=== PATIENT | female | born 1975 | race Asian ===

== ENCOUNTER 2023-03-29 11:01 | Emergency (ER) | payer OTHER, SELFPAY ==
[2023-03-29 11:06] VITALS: BP 121/62
--- NOTE | 2023-03-29 11:30 | ED.GENMED ---
History of Present Illness
General
Chief Complaint: Headache
Time Seen by Provider: 03/29/23 11:24
Travel History
Have you had any contact with someone who has COVID-19?: No
Do you have any symptoms of coronavirus? Fever > 100 degrees, chills, cough, shortness of breath, sore throat, loss of taste or smell, muscle aches, or headache?: Yes
Symptoms:: cough headache
History of Present Illness
History of Present Illness:
47-year-old female with history of migraines presents the emergency department for evaluation of intractable migraine for the past 2 weeks. Headache is gradually worsening, associated with photophobia and nausea. Has had migraines in the past but
states this is worse. Denies maximal pain at onset, denies any fevers or chills. Was seen in urgent care 2 days ago and given antibiotics for presumed upper respiratory tract infection states that her symptoms or not improving. Took rizatriptan
this morning without relief. Denies worsening the morning, denies any night sweats or weight loss. No vision changes or chest pain
Review of Systems
Review of Systems
Allergies reviewed?: Yes
All Other Systems: ROS reviewed and negative except as documented in HPI and ROS
Phy Exam
Physical Exam
Physical Exam:
GEN: Well appearing, NAD, WDWN
HEENT: Oral mucosa moist, no scleral icterus, no nasal congestion
Cardiac: Regular rate
Lung: No respiratory distress, no tachypnea
MSK: No gross deformity or injuries
Skin: Good color, no pallor or jaundice, no rashes
Neuro: AO x3; CN II-XII grossly intact. BUE strength 5/5 in all [place], sensation intact and symmetric. BLE strength 5/5 in all [place], sensation intact and symmetric
Psych: Calm, cooperative
Course
Orders/Labs/Results
Orders:
Orders
03/29/23 11:29
0.9% Sodium Chloride 1000 ml [Nss] 1,000 ml IV BOLUS
Acetaminophen [Tylenol] 1,000 mg PO NOW STA
Ketorolac [Toradol] 15 mg IV NOW STA
Magnesium Sulfate 2 Gram/50 ml [Magnesium Sulfate] 2 gram in 50 ml IV NOW
Metoclopramide [Reglan] 10 mg IV NOW STA
03/29/23 11:30
CT Head W/o Iv Contrast Urgent
Comment:
Reason For Exam: intractable headache
Test Result ONCE
03/29/23 12:07
Basic Metabolic Panel Urgent
Complete Blood Count/No Diff Urgent
HCG, Serum Qualitative Screen Urgent
Abnormal Lab Results
03/29/23
12:07
WBC 3.0 L 10^3/uL
(4.8-10.8)
RBC 4.12 L 10^6/uL
(4.20-5.40)
Hct 35.1 L %
(37.0-47.0)
Sodium 132 L mmol/L
(135-145)
Carbon Dioxide 21 L mmol/L
(22-30)
Creatinine 0.5 L mg/dL
(0.6-1.0)
Glucose 144 H mg/dl
(70-99)
03/29/23 12:07
03/29/23 12:07
Vital Signs
Initial and Last Documented VS:
Initial Vital Signs
Temp Pulse Resp BP Pulse Ox
98.2 F 80 18 121/62 99
03/29/23 11:06 03/29/23 11:06 03/29/23 11:06 03/29/23 11:06 03/29/23 11:06
Last Documented Vital Signs
Temp Pulse Resp BP Pulse Ox
98.2 F 80 18 103/73 98
03/29/23 11:06 03/29/23 11:06 03/29/23 11:06 03/29/23 12:18 03/29/23 12:45
MDM/Problems Addressed
MDM/Problems Addressed:
Patient has no focal neurologic deficits concerning for intracranial pathology, her headache duration of greater than 2 weeks is suggestive against hemorrhagic etiology such as subarachnoid hemorrhage. Patient is quite insistent on receiving a CT
of the head due to the intractable nature of her symptoms which is not unreasonable, CT was obtained and this was unremarkable. Patient was treated supportively for migraine with typical migraine cocktail, this did essentially resolved symptoms.
This is likely an intractable migraine given the patient does have a history of this. Encourage close primary care follow-up
*Critical Care Note
Total Time (30-74mins, 75-104mins- exclusive of procedures): Not Applicable
ED Attending Note
-
Portions of this chart may have been created with voice recognition software.� Occasional wrong word or��sound alike� substitutions may have occurred due to the inherent limitations of voice recognition software.
Discharge Plan
Departure
Patient Disposition: Home (Routine Discharge)
Date of Disposition: 03/29/23
Time of Disposition: 12:43
Patient with high blood pressure during this ER visit?: No
Discharge Problem:
Intractable migraine
Instructions: Migraines (DC)
Interventions
Interventions:
*Risk Screen - Suicide Last Done: 03/29/23 11:06
*General Assessment Last Done: 03/29/23 11:06
*Neglect/Abuse Screening Last Done: 03/29/23 11:06
*ED COVID-19 Vaccine History Last Done: 03/29/23 11:06
ED- Neurological Assessment Last Done: 03/29/23 12:15
[2023-03-29] MEDS: TORADOL 15 MG IV (11:54)
[2023-03-29] MEDS: NSS 1000 IV (11:56)
[2023-03-29] MEDS: REGLAN 10 MG IV (11:56)
[2023-03-29] MEDS: TYLENOL 1000 MG PO (11:57)
[2023-03-29] MEDS: MAGNESIUM SULFATE 50 IV (12:10)
[2023-03-29 12:18] VITALS: BP 103/73
[2023-03-29 12:22] LABS: Hematocrit 35.1 % (37.0-47.0); Hemoglobin 12.5 g/dL (12.0-16.0); Mean Corp Hgb Conc. 35.6 g/dL (33.0-37.0); Mean Corpuscular Hgb 30.3 pg (27.0-31.0); Mean Corpuscular Volume 85.2 fL (81.0-99.0); Mean Platelet Volume 10.3 fL (7.4-10.4); Platelet Count 154 10^3/uL (130-400); Red Blood Cell Count 4.12 10^6/uL (4.20-5.40); Red Cell Dist. Width 12.2 % (11.5-14.5)
[2023-03-29 12:34] LABS: HCG, Serum Qualitative Screen Negative
[2023-03-29 12:35] LABS: Blood Urea Nitrogen 9 mg/dl (7-17); Calcium 8.5 mg/dl (8.4-10.2); Carbon Dioxide 21 mmol/L (22-30); Chloride 105 mmol/L (98-107); Glucose 144 mg/dl (70-99); Potassium 3.5 mmol/L (3.5-5.1); Sodium 132 mmol/L (135-145); eGFR > 60.00
== END 2023-03-29 12:50 | disposition home or self-care (01) ==
LOC: EMR 11:01
PROVIDERS: Physician Assistant; EMERGENCY PHYSICIAN Emergency Medicine
DX: G43.919 Migraine, unspecified, intractable, without status migrainosus (principal)
CPT/HCPCS: 99284; 96365; 96375 ×2; 96361; 70450; 80048; 84703; 85027

== ENCOUNTER 2023-04-04 11:54 | Emergency (ER) | payer OTHER, SELFPAY ==
[2023-04-04 11:58] VITALS: BP 120/75
[2023-04-04 12:20] LABS: % Basophils 0.2 % (0-2); % Eosinophils 0.3 % (0-6); % Immature Granulocytes 0.3 % (0-0.5); % Lymphocytes 15.4 % (20.5-51.1); % Monocytes 3.6 % (1.7-9.3); % Neutrophils 80.2 % (42.2-75.2); Absolute Lymphocytes 1.5 10^3/uL (1.2-3.4); Absolute Monocytes 0.4 10^3/uL (0.1-0.6); Absolute Neutrophils 7.9 10^3/uL (1.4-6.5); Hematocrit 35.5 % (37.0-47.0); Hemoglobin 12.8 g/dL (12.0-16.0); Mean Corp Hgb Conc. 36.1 g/dL (33.0-37.0); Mean Corpuscular Volume 83.3 fL (81.0-99.0); Mean Platelet Volume 10.6 fL (7.4-10.4); Nucleated Red Blood Cells % 0 %; Platelet Count 144 10^3/uL (130-400); Red Blood Cell Count 4.26 10^6/uL (4.20-5.40); Red Cell Dist. Width 11.9 % (11.5-14.5); White Blood Cell Count 9.8 10^3/uL (4.8-10.8)
[2023-04-04 12:45] VITALS: BMI 23.3
[2023-04-04 12:46] LABS: ALT (SGPT) 14 U/L (0-35); AST (SGOT) 21 U/L (14-36); Albumin 4.1 g/dl (3.5-5.0); Blood Urea Nitrogen 9 mg/dl (7-17); Calcium 9.3 mg/dl (8.4-10.2); Carbon Dioxide 20 mmol/L (22-30); Chloride 102 mmol/L (98-107); Glucose 88 mg/dl (70-99); Potassium 3.7 mmol/L (3.5-5.1); Sodium 135 mmol/L (135-145); Total Protein 6.8 g/dl (6.3-8.2); eGFR > 60.00
[2023-04-04 12:47] VITALS: BP 111/78
[2023-04-04 12:48] LABS: COVID-19 Antigen Negative (Negative)
[2023-04-04 12:56] LABS: Alkaline Phosphatase 62 U/L (38-126)
[2023-04-04 13:00] VITALS: BP 105/68
[2023-04-04 13:07] LABS: Total Bilirubin 0.8 mg/dl (0.2-1.3)
--- NOTE | 2023-04-04 13:15 | ED.GENMED ---
History of Present Illness
<Mariaa Mcintosh PA-C - Last Filed: 04/04/23 14:25>
General
Chief Complaint: Cold/Flu/URI Symptoms
Source: patient
Exam Limitations: none
Time Seen by Provider: 04/04/23 13:14
Nursing documentation reviewed up to this point in time: agreed with
Travel History
Have you had any contact with someone who has COVID-19?: No
Do you have any symptoms of coronavirus? Fever > 100 degrees, chills, cough, shortness of breath, sore throat, loss of taste or smell, muscle aches, or headache?: Yes
Symptoms:: cough
History of Present Illness
History of Present Illness:
47-year-old healthy female with no past medical history presenting to emergency department today with right-sided chest pain, shortness of breath, and cough for the past 3 weeks. Patient states that she has also been coughing up yellow and green
sputum. She denies fevers or chills, headaches. She also has associated back pain. She denies any past medical history. She denies any daily medications. She denies hemoptysis. She states that she has been using Mucinex to help try the clear
from her mucus but states that has not been helping. She states that she does not vaccinated against COVID.
Review of Systems
<Mariaa Mcintosh PA-C - Last Filed: 04/04/23 14:25>
Review of Systems
All Other Systems: ROS reviewed and negative except as documented in HPI and ROS
Phy Exam
<Mariaa Mcintosh PA-C - Last Filed: 04/04/23 14:25>
General Physical Exam
General Presentation: well appearing and no apparent distress
General Skin: warm and dry
General Habitus: normal
General Mental: alert
General Hydration: appears well hydrated
ENT Exam
ENT Exam: EOMI, pharynx normal and normocephalic
Eye Exam
Eye Exam: PERRL, EOMI, cornea clear and conjunctiva normal
Cardiovascular Exam
Cardiovascular Exam: regular rate/rhythm
Pulmonary Exam
Pulmonary Exam: no respiratory distress, chest non tender and other (rhonchi)
Cough: productive cough
Gastrointestinal Exam
Gastrointestinal Exam: non tender
Neurological Exam
Neurological Exam: alert and oriented x3
Skin Exam
Skin Exam: normal color, warm/dry and no rash
Course
<Mariaa Mcintosh PA-C - Last Filed: 04/04/23 14:25>
Orders/Labs/Results
Orders:
Orders
04/04/23 12:10
CBC/With Diff [Complete Blood Count/With Diff] Urgent
CMP [Comprehensive Metabolic Panel] Urgent
COVID-19 Antigen Urgent
Source: Nasal Swab
INF RAPID [Influenza A+B Rapid Molecular] Urgent
ANTHONY Source: Nasal Swab
Specimen Description:
04/04/23 13:25
Ibuprofen [Motrin] 600 mg PO NOW STA
CR Chest - 2 Views Urgent
Comment:
Reason For Exam: shortness of breath
Abnormal Lab Results
04/04/23
12:10
Hct 35.5 L %
(37.0-47.0)
MPV 10.6 H fL
(7.4-10.4)
Absolute Neuts (auto) 7.9 H 10^3/uL
(1.4-6.5)
Neutrophils % 80.2 H %
(42.2-75.2)
Lymphocytes % 15.4 L %
(20.5-51.1)
Carbon Dioxide 20 L mmol/L
(22-30)
Creatinine 0.5 L mg/dL
(0.6-1.0)
04/04/23 12:10
04/04/23 12:10
Vital Signs
Initial and Last Documented VS:
Initial Vital Signs
Temp Pulse Resp BP Pulse Ox
97.9 F 70 16 120/75 98
04/04/23 11:58 04/04/23 11:58 04/04/23 11:58 04/04/23 11:58 04/04/23 11:58
Last Documented Vital Signs
Temp Pulse Resp BP Pulse Ox
97.9 F 67 22 105/68 96
04/04/23 11:58 04/04/23 13:15 04/04/23 13:15 04/04/23 13:00 04/04/23 13:15
<Kings Thurman, DO - Last Filed: 04/04/23 14:40>
Orders/Labs/Results
Orders:
Orders
04/04/23 12:10
CBC/With Diff [Complete Blood Count/With Diff] Urgent
CMP [Comprehensive Metabolic Panel] Urgent
COVID-19 Antigen Urgent
Source: Nasal Swab
INF RAPID [Influenza A+B Rapid Molecular] Urgent
ANTHONY Source: Nasal Swab
Specimen Description:
04/04/23 13:25
Ibuprofen [Motrin] 600 mg PO NOW STA
CR Chest - 2 Views Urgent
Comment:
Reason For Exam: shortness of breath
Abnormal Lab Results
04/04/23
12:10
Hct 35.5 L %
(37.0-47.0)
MPV 10.6 H fL
(7.4-10.4)
Absolute Neuts (auto) 7.9 H 10^3/uL
(1.4-6.5)
Neutrophils % 80.2 H %
(42.2-75.2)
Lymphocytes % 15.4 L %
(20.5-51.1)
Carbon Dioxide 20 L mmol/L
(22-30)
Creatinine 0.5 L mg/dL
(0.6-1.0)
04/04/23 12:10
04/04/23 12:10
Vital Signs
Initial and Last Documented VS:
Initial Vital Signs
Temp Pulse Resp BP Pulse Ox
97.9 F 70 16 120/75 98
04/04/23 11:58 04/04/23 11:58 04/04/23 11:58 04/04/23 11:58 04/04/23 11:58
Last Documented Vital Signs
Temp Pulse Resp BP Pulse Ox
97.9 F 67 22 105/68 96
04/04/23 11:58 04/04/23 13:15 04/04/23 13:15 04/04/23 13:00 04/04/23 13:15
<Mariaa Mcintosh PA-C - Last Filed: 04/04/23 14:25>
MDM/Problems Addressed
Differential Diagnosis Includes:
Differentials include acute bronchitis, pneumonia, URI, COVID, influenza
MDM/Problems Addressed:
cough
shortness of breath
Chronic conditions affecting care:
migraines
<Mariaa Mcintosh PA-C - Last Filed: 04/04/23 14:25>
*Radiology
Radiology exam reviewed: preliminary read by ED provider (no evidence of pneumonia) and radiology read reviewed
*Pulse Oximetry
Patient hypoxic: no
*Critical Care Note
Total Time (30-74mins, 75-104mins- exclusive of procedures): Not Applicable
Data Reviewed
Review of Other/Old Records Reveals: Records (Reviewed ER physician documentation from 03/29/2023)
<Mariaa Mcintosh PA-C - Last Filed: 04/04/23 14:25>
Patient Management
Escalation/DeEscalation of care consider admission/obs:
47-year-old female with no past medical history presenting emergency department today with shortness of breath, chest pain, cough for the past 3 weeks. Patient's and children also have these symptoms. On exam, she has scattered rhonchi but
no acute respiratory distress. She tested negative for COVID and flu here in emergency department. Her x-ray shows no evidence of pneumonia or other acute cardiopulmonary disease. Patient main most concerning symptom is her persistent cough with
the shortness of breath. I suspect patient has acute bronchitis. Will send patient home with with an albuterol inhaler to use as needed.
ED Attending Note
<Mariaa Mcintosh PA-C - Last Filed: 04/04/23 14:25>
-
Portions of this chart may have been created with voice recognition software.� Occasional wrong word or��sound alike� substitutions may have occurred due to the inherent limitations of voice recognition software.
<Kings Thurman DO - Last Filed: 04/04/23 14:40>
ED Attending Note
Patient seen and examined by attending physician: Yes
I performed a history and physical exam of patient and discussed management with resident, I reviewed resident's note and agree with documented findings and plan of care.: Yes
ED Attending Note:
I have reviewed with history and treatment plan by Mariaa Mcintosh. My exam revealed
Physical Exam
General: no apparent distress, not acutely ill
Neck: supple. no meningeal signs. normal posterior pharynx
Heart: s1/s2 regular rate and rhythm, no murmur. equal radial
pulses.
HEENT: Pupils equal round reactive to light, EOMI
Lungs: no acute respiratory distress. clear bilaterally, cough
Abdomen: normal bowel sounds. not tender. no CVAT
Neuro: alert and oriented. no focal neurological deficits cranial nerves II through XII intact
Skin: no rash
Psychiatric: well kept. interactive and cooperative
Extremities: no edema. no calf tenderness. negative homans. good distal pulses
Consistent with bronchitis. No signs of pneumonia. Treat with albuterol. Follow-up with primary care.
Discharge Plan
Departure
Patient Disposition: Home (Routine Discharge)
Date of Disposition: 04/04/23
Time of Disposition: 14:01
Patient with high blood pressure during this ER visit?: No
Condition: Good
Discharge Problem:
Acute bronchitis
Instructions: Acute Bronchitis, Adult (DC), How to use your dry powder inhaler (adults)
Prescriptions:
New
albuterol sulfate [ProAir HFA] 90 mcg/actuation HFA aerosol inhaler
1 puff inhalation Q4HPRN PRN (Reason: shortness of breath) Qty: 6.7 0RF
Referrals:
Alex Webb MD [Family Provider] -
Activity Restrictions/Additional Instructions:
We have sent an albuterol inhaler to your pharmacy. Please use 1 puff every 4 hours as needed for cough/shortness of breath.
Please return emergency department any concerns.
Please follow-up with your primary care provider.
Interventions
Interventions:
*Risk Screen - Suicide Last Done: 04/04/23 11:58
*General Assessment Last Done: 04/04/23 11:58
*Neglect/Abuse Screening Last Done: 04/04/23 11:58
ED- Fall Risk Assessment Last Done: 04/04/23 12:45
*ED COVID-19 Vaccine History Last Done: 04/04/23 12:45
*Nursing Disposition Last Done: 04/04/23 14:13
ED- Pulmonary Assessment Last Done: 04/04/23 12:45
Discharge Date and Time
Discharge Date/Time: 04/04/23 14:14
[2023-04-04] MEDS: MOTRIN 600 MG PO (13:33)
== END 2023-04-04 14:14 | disposition home or self-care (01) ==
LOC: EMR 11:54
PROVIDERS: EMERGENCY PHYSICIAN Emergency Medicine; FAMILY PHYSICIAN Internal Medicine
DX: J20.9 Acute bronchitis, unspecified (principal); M54.9 Dorsalgia, unspecified; Z11.52 Encounter for screening for COVID-19
CPT/HCPCS: 99283; 71046; 80053; 85025; 87502; 87811

== ENCOUNTER 2024-01-04 10:27 | Emergency (ER) | payer OTHER, SELFPAY ==
[2024-01-04 10:34] VITALS: BP 130/75
[2024-01-04 11:04] LABS: COVID-19 Antigen Negative (Negative)
--- NOTE | 2024-01-04 11:50 | ED.GENMED ---
History of Present Illness
General
Chief Complaint: Cough
Source: patient
Exam Limitations: none
Time Seen by Provider: 01/04/24 11:35
History of Present Illness
History of Present Illness:
48-year-old female presents with 2 weeks worth of fatigue cough occasional headache. Her children are sick with similar symptoms. She has not had a fever. She notes a productive cough. She denies a wheeze or shortness breath.
Phy Exam
Physical Exam
Physical Exam:
General: Well appearing female NAD
HEENT: NC/AT, no adenopathy
Heart; RRR, no murmurs
LUngs: CTA bilaterally
Ext: NO cyanosis
Course
Orders/Labs/Results
Orders:
Orders
01/04/24 10:41
COVID-19 Antigen Urgent
Source: Nasal Swab
Influenza A+B Rapid Molecular Urgent
ANTHONY Source: Nasal Swab
Specimen Description:
01/04/24 11:49
CR Chest - 2 Views Urgent
Comment:
Reason For Exam: cough
Vital Signs
Initial and Last Documented VS:
Initial Vital Signs
Temp Pulse Resp BP Pulse Ox
97.9 F 66 16 130/75 98
01/04/24 10:34 01/04/24 10:34 01/04/24 10:34 01/04/24 10:34 01/04/24 10:34
Last Documented Vital Signs
Temp Pulse Resp BP Pulse Ox
97.9 F 66 16 130/75 98
01/04/24 10:34 01/04/24 10:34 01/04/24 10:34 01/04/24 10:34 01/04/24 10:34
MDM/Problems Addressed
Differential Diagnosis Includes:
Patient with cough fatigue over the past 10 days. Lungs are clear vital signs are stable she tested negative for COVID and flu. Children are sick with similar symptoms. Will get x-ray to evaluate for pneumonia secondary to the persistent cough.
If negative consider viral illness and supportive
*Critical Care Note
Total Time (30-74mins, 75-104mins- exclusive of procedures): Not Applicable
Update Note
Update Note:
Chest x-ray personally reviewed by me and there is no evidence of pneumonia. Suspect viral illness. Recommended supportive care stable for discharge
ED Attending Note
-
Portions of this chart may have been created with voice recognition software.� Occasional wrong word or��sound alike� substitutions may have occurred due to the inherent limitations of voice recognition software.
Discharge Plan
Departure
Patient Disposition: Home (Routine Discharge)
Date of Disposition: 01/04/24
Time of Disposition: 13:52
Patient with high blood pressure during this ER visit?: No
Discharge Problem:
URI (upper respiratory infection)
Instructions: Viral Upper Respiratory Infection, Adult (DC)
Prescriptions:
No Action
albuterol sulfate [ProAir HFA] 90 mcg/actuation HFA aerosol inhaler
1 puff inhalation Q4HPRN PRN (Reason: shortness of breath) Qty: 6.7 0RF
Referrals:
UNKNOWN - PT DOES,NOT KNOW [Family Provider] -
Activity Restrictions/Additional Instructions:
Drink plenty fluids. Rest. You may treat your fever if needed. Return if worse otherwise follow-up with family doctor
Interventions
Interventions:
*Risk Screen - Suicide Last Done: 01/04/24 12:48
*General Assessment Last Done: 01/04/24 12:48
*Neglect/Abuse Screening Last Done: 01/04/24 12:48
*ED COVID-19 Vaccine History Last Done: 01/04/24 12:48
ED- Pulmonary Assessment Last Done: 01/04/24 12:48
Discharge Date and Time
Print Language: MALAY
== END 2024-01-04 14:23 | disposition home or self-care (01) ==
LOC: EMR 10:27
PROVIDERS: Emergency Medicine; EMERGENCY PHYSICIAN Student in an Organized Health Care Education/Training Program
DX: J06.9 Acute upper respiratory infection, unspecified (principal)
CPT/HCPCS: 99284; 71046; 87502; 87811

== ENCOUNTER → 2024-01-23 11:08 | Emergency (ER) | payer OTHER, SELFPAY ==
[2024-01-23 11:14] VITALS: BP 133/67
[2024-01-23 12:33] LABS: COVID-19 Antigen Negative (Negative)
[2024-01-23 13:38] VITALS: BP 120/74
[2024-01-23 13:41] VITALS: BMI 23.4
[2024-01-23 13:44] VITALS: BP 120/74
--- NOTE | 2024-01-23 14:14 | ED.GENMED ---
History of Present Illness
General
Chief Complaint: Cold/Flu/URI Symptoms
Time Seen by Provider: 01/23/24 14:05
History of Present Illness
History of Present Illness:
Patient presents the emergency department with cough. Symptoms started about 1 month ago when her children were sick with a URI that got better on its own. She states that she developed some upper respiratory symptoms such as congestion sore
throat and cough. The cough has persisted over the past month. She states it is worse at night. She has yellow sputum. Denies any chest pain or shortness of breath. Denies any leg swelling. Denies any fevers. Patient is a non-smoker. Denies
any medical history.
Phy Exam
Physical Exam
Physical Exam:
GENERAL APPEARANCE: NAD, well developed/ well nourished
EYES lids/conjunctiva normal
EARS/NOSE/THROAT Mucous membranes moist, uvula midline, mild pharyngeal erythema without any swelling
HEAD/NECK normocephalic atraumatic, neck is supple.
RESPIRATORY respiratory effort normal, speaks in full sentences, no accessory muscle use. Lungs clear to auscultation without rhonchi, wheezes, rales
CARDIAC Regular rate and rhythm, no edema.
ABDOMINAL Soft, ND/NT. No pulsatile masses on exam, rebound tenderness, Love sign or pain over Mcburney's point.
MUSCLES/EXTREMITIES No abnormal range of motion, no swelling.
SKIN Warm, pink and dry. No rashes
NEUROLOGICAL Speech is clear and appropriate. Normal level of consciousness. 5/5 strength in all extremities.
PSYCH Normal mood and affect. Judgement/competence is appropriate
Course
Orders/Labs/Results
Orders:
Orders
01/23/24 12:08
COVID-19 Antigen Urgent
Source: Nasal Swab
Influenza A+B Rapid Molecular Urgent
ANTHONY Source: Nasal Swab
Specimen Description:
01/23/24 12:44
CXR2 [CR Chest - 2 Views ] Urgent
Comment:
Reason For Exam: COUGH FOR ONE MONTH
01/23/24 14:13
Naproxen [Naprosyn] 500 mg PO NOW STA
Vital Signs
Initial and Last Documented VS:
Initial Vital Signs
Temp Pulse Resp BP Pulse Ox
98.1 F 68 18 133/67 99
01/23/24 11:14 01/23/24 11:14 01/23/24 11:14 01/23/24 11:14 01/23/24 11:14
Last Documented Vital Signs
Temp Pulse Resp BP Pulse Ox
98.1 F 68 16 120/74 100
01/23/24 11:14 01/23/24 11:14 01/23/24 13:44 01/23/24 13:44 01/23/24 13:45
*Critical Care Note
Total Time (30-74mins, 75-104mins- exclusive of procedures): Not Applicable
ED Attending Note
ED Attending Note
ED Attending Note:
Patient with foot postviral cough that is persistent and with change in sputum. Will treat for bronchitis. Chest x-ray negative for pneumonia. Viral swabs negative.
-
Portions of this chart may have been created with voice recognition software.� Occasional wrong word or��sound alike� substitutions may have occurred due to the inherent limitations of voice recognition software.
Discharge Plan
Departure
Patient Disposition: Home (Routine Discharge)
Date of Disposition: 01/23/24
Time of Disposition: 14:15
Patient with high blood pressure during this ER visit?: No
Discharge Problem:
Acute bronchitis
Instructions: Acute Bronchitis, Adult (DC)
Prescriptions:
New
methylprednisolone [Medrol ([place])] 4 mg tablets,dose pack
See Rx Instructions .ROUTE .COMPLEX Qty: 21 0RF
Rx Instructions:
orally per package directions
doxycycline hyclate 100 mg capsule
100 mg PO BID Qty: 14 0RF
No Action
albuterol sulfate [ProAir HFA] 90 mcg/actuation HFA aerosol inhaler
1 puff inhalation Q4HPRN PRN (Reason: shortness of breath) Qty: 6.7 0RF
Activity Restrictions/Additional Instructions:
Please follow-up with your doctor in the next week to ensure resolution. Return to the ER with worsening symptoms
Interventions
Interventions:
*General Assessment Last Done: 01/23/24 11:14
*ED COVID-19 Vaccine History Last Done: 01/23/24 13:42
ED- Pulmonary Assessment Last Done: 01/23/24 13:45
Discharge Date and Time
Print Language: GERMAN
[2024-01-23] MEDS: NAPROSYN 500 MG PO (14:26)
== END | disposition home or self-care (01) ==
LOC: EMR 11:08
PROVIDERS: Emergency Medicine; EMERGENCY PHYSICIAN Emergency Medicine; FAMILY PHYSICIAN Internal Medicine Nephrology
DX: J20.9 Acute bronchitis, unspecified (principal)
CPT/HCPCS: 99283; 71046; 87502; 87811

== ENCOUNTER 2024-12-05 14:12 | Emergency (ER) | payer OTHER, SELFPAY ==
[2024-12-05 14:13] VITALS: BP 117/75
--- NOTE | 2024-12-05 14:58 | ED.GENMED ---
ED Provider Triage
<Jayce House MD, Resident - Last Filed: 12/05/24 16:42>
-
Patient seen by provider in Triage?: Seen in Triage
History of Present Illness
<Jayce House MD, Resident - Last Filed: 12/05/24 16:42>
General
Chief Complaint: Headache
Source: patient
Exam Limitations: none
Time Seen by Provider: 12/05/24 14:35
History of Present Illness
History of Present Illness:
49-year-old female with no significant past medical history presents for sore throat/itchy throat/rhinorrhea that started 1 week ago associated with a productive cough which has been constant and then new symptom of left-sided moderate intensity
headache today morning. no neck pain, no visual changes, no chills, no ear pain/fullness/discharge, no abdominal pain, nausea, vomiting, diarrhea, acute mental status changes. Patient has never been vaccinated for COVID and did not get the flu
vaccination this year. She has she has had previous clinical similar presentations and has been seen for acute bronchitis,viral URI, and intractable migraines in [place] emergency department.
Past History
<Jayce House MD, Resident - Last Filed: 12/05/24 16:42>
Past History
ED Past Medical History: Other (Bronchitis, URI, intractable migraine)
ED Past Surgical History: None
Social History
Tobacco: Non-smoker
Alcohol: None
Drug: None
Review of Systems
<Jayce House MD, Resident - Last Filed: 12/05/24 16:42>
Review of Systems
All Other Systems: ROS reviewed and negative except as documented in HPI and ROS
Phy Exam
<Jayce House MD, Resident - Last Filed: 12/05/24 16:42>
General Physical Exam
General Presentation: well appearing
General Skin: warm
General Habitus: normal
General Mental: alert
ENT Exam
ENT Exam: EOMI, TM's normal, pharyngeal erythema and swallowing well
Eye Exam
Eye Exam: PERRL and EOMI
Cardiovascular Exam
Cardiovascular Exam: regular rate/rhythm and no edema
Pulmonary Exam
Pulmonary Exam: other (Bilateral wheeze of the lower lobes of the lung)
Gastrointestinal Exam
Gastrointestinal Exam: normal bowel sounds, non tender, soft and non distended
Neurological Exam
Neurological Exam: alert and oriented x3
Musculoskeletal Exam
Musculoskeletal Exam: full ROM
Skin Exam
Skin Exam: normal color, warm/dry and no rash
Psychiatric Exam
Psychiatric Exam: normal mood/affect
Course
<Jayce House MD, Resident - Last Filed: 12/05/24 16:42>
Orders/Labs/Results
Orders:
Orders
12/05/24 14:49
Acetaminophen [Tylenol] 650 mg PO NOW STA
12/05/24 15:03
Albuterol [ProAIR HFA INHALER] 2 puff INH R NOW STA
Chest [CR Chest - 2 Views ] Urgent
Comment:
Reason For Exam: sob
12/05/24 15:06
Ibuprofen [Motrin] 600 mg PO NOW STA
12/05/24 15:36
COVID-19 Antigen Urgent
Source: Nasal Swab
Influenza A+B Rapid Molecular Urgent
ANTHONY Source: Nasal Swab
Specimen Description:
Rapid Strep Group A Urgent
ANTHONY Source: Throat/Pharynx
Specimen Description:
Date Specimen was Collected: 12/05/24
Time Specimen was Collected: 15:06
12/05/24 16:44
Albuterol [ProAIR HFA INHALER] 2 puff INH R NOW STA
Vital Signs
Initial and Last Documented VS:
Initial Vital Signs
Temp Pulse Resp BP Pulse Ox
97.9 F 63 17 117/75 99
12/05/24 14:13 12/05/24 14:13 12/05/24 14:13 12/05/24 14:13 12/05/24 14:13
Last Documented Vital Signs
Temp Pulse Resp BP Pulse Ox
97.9 F 63 17 117/75 99
12/05/24 14:13 12/05/24 14:13 12/05/24 14:13 12/05/24 14:13 12/05/24 15:02
<Jann Thapa MD - Last Filed: 12/05/24 16:49>
Orders/Labs/Results
Orders:
Orders
12/05/24 14:49
Acetaminophen [Tylenol] 650 mg PO NOW STA
12/05/24 15:03
Albuterol [ProAIR HFA INHALER] 2 puff INH R NOW STA
Chest [CR Chest - 2 Views ] Urgent
Comment:
Reason For Exam: sob
12/05/24 15:06
Ibuprofen [Motrin] 600 mg PO NOW STA
12/05/24 15:36
COVID-19 Antigen Urgent
Source: Nasal Swab
Influenza A+B Rapid Molecular Urgent
ANTHONY Source: Nasal Swab
Specimen Description:
Rapid Strep Group A Urgent
ANTHONY Source: Throat/Pharynx
Specimen Description:
Date Specimen was Collected: 12/05/24
Time Specimen was Collected: 15:06
12/05/24 16:44
Albuterol [ProAIR HFA INHALER] 2 puff INH R NOW STA
Vital Signs
Initial and Last Documented VS:
Initial Vital Signs
Temp Pulse Resp BP Pulse Ox
97.9 F 63 17 117/75 99
12/05/24 14:13 12/05/24 14:13 12/05/24 14:13 12/05/24 14:13 12/05/24 14:13
Last Documented Vital Signs
Temp Pulse Resp BP Pulse Ox
97.9 F 63 17 117/75 99
12/05/24 14:13 12/05/24 14:13 12/05/24 14:13 12/05/24 14:13 12/05/24 15:02
<Jayce House MD, Resident - Last Filed: 12/05/24 16:42>
MDM/Problems Addressed
Differential Diagnosis Includes:
Viral URI, viral pharyngitis, acute bronchitis, COVID-19, influenza, strep pharyngitis
MDM/Problems Addressed:
- influenza, COVID, strep throat- all negative
- Chest x-ray- no acute cardiopulmonary process
- Motrin/ tylenol ordered for headache
Most likely viral illness, will discharge patient home with instructions to f/u pcp in 5 days.
<Jayce House MD, Resident - Last Filed: 12/05/24 16:42>
*Pulse Oximetry
SaO2: 99
Oxygen Mode of Delivery: Room air
Patient hypoxic: no
*Critical Care Note
Total Time (30-74mins, 75-104mins- exclusive of procedures): Not Applicable
ED Attending Note
<Jayce House MD, Resident - Last Filed: 12/05/24 16:42>
-
Portions of this chart may have been created with voice recognition software.� Occasional wrong word or��sound alike� substitutions may have occurred due to the inherent limitations of voice recognition software.
<Jann Thapa MD - Last Filed: 12/05/24 16:49>
ED Attending Note
Patient seen and examined by attending physician: Yes
I performed a history and physical exam of patient and discussed management with resident, I reviewed resident's note and agree with documented findings and plan of care.: Yes
ED Attending Note:
49-year-old female complaining of cough congestion sore throat for about a week. Some yellow sputum. Developed a right frontal headache today. History of migraines. Headache feels like her typical migraine. She is been worked up for migraines
in the past. No hemoptysis no chest pain no significant shortness of breath no pain management for the headaches.
On exam patient is nontoxic in no distress. Some nasal congestion. Minimal pharyngeal erythema. No drooling or stridor. Speech is mildly nasally but normal. No respiratory distress. Very minimal expiratory and wheezing at the bases. No
retractions. No rales. Heart regular rate and rhythm. Neck is supple and nontender. Mild right frontal tenderness to palpation.
Impression is URI/bronchitis. Will check chest x-ray COVID and flu. Her headache is her typical migraine. She states she gets this about once a month. She has had CTs in the past we discussed reimaging which she states she would like to avoid
and is reasonable given that this is her typical migraine.
Chest x-ray negative. COVID flu strep negative. Headache of her typical migraine headache. All appears to be viral syndrome. Symptomatic treatment and follow-up
Discharge Plan
Departure
Patient Disposition: Home (Routine Discharge)
Date of Disposition: 12/05/24
Time of Disposition: 16:33
Patient with high blood pressure during this ER visit?: No
Condition: Fair
Discharge Problem:
Viral illness
Instructions: Upper respiratory infection in adults - ED (DC)
Prescriptions:
No Action
albuterol sulfate [ProAir HFA] 90 mcg/actuation HFA aerosol inhaler
1 puff inhalation Q4HPRN PRN (Reason: shortness of breath) Qty: 6.7 0RF
methylprednisolone [Medrol ([place])] 4 mg tablets,dose pack
See Rx Instructions .ROUTE .COMPLEX Qty: 21 0RF
Rx Instructions:
orally per package directions
doxycycline hyclate 100 mg capsule
100 mg PO BID Qty: 14 0RF
Referrals:
UNKNOWN - PT DOES,NOT KNOW [Family Provider]
Activity Restrictions/Additional Instructions:
Please follow up with PCP within 5 days.
Thank you for visiting the Emergency Department at [facility].
1. Please schedule a follow up appointment as directed. Call first thing tomorrow morning to make an appointment.
2. If indicated, please take your medications as instructed and indicated on discharge paperwork.
3. If any of your symptoms do not improve, or persist, or become more severe within 6-12 hours, please return to the emergency department for further care.
4. Please return to the emergency department if you develop a headache, neck pain/stiffness, fever greater than 100.4F, chest pain, shortness of breath, persistent nausea, vomiting, slurred speech, difficulty walking, numbness/tingling, weakness,
signs of infection or any other symptoms that are worrisome to you.
Please call [phone] if you have any questions.
Interventions
Interventions:
*Risk Screen - Suicide Last Done: 12/05/24 14:15
*General Assessment Last Done: 12/05/24 14:15
*Neglect/Abuse Screening Last Done: 12/05/24 14:15
*ED COVID-19 Vaccine History Last Done: 12/05/24 14:15
*ED Influenza Vaccine History Last Done: 12/05/24 14:15
Discharge Date and Time
Print Language: IRAQI
[2024-12-05] MEDS: TYLENOL 650 MG PO (15:30)
[2024-12-05] MEDS: MOTRIN 600 MG PO (15:31)
[2024-12-05 15:41] VITALS: BP 114/75
[2024-12-05 16:00] VITALS: BP 110/73
[2024-12-05 16:03] LABS: COVID-19 Antigen Negative (Negative)
== END 2024-12-05 17:15 | disposition home or self-care (01) ==
LOC: EMR 14:12
PROVIDERS: EMERGENCY PHYSICIAN Emergency Medicine
DX: B34.9 Viral infection, unspecified (principal); G43.909 Migraine, unspecified, not intractable, without status migrainosus
CPT/HCPCS: 99283; 71046; 87070; 87502; 87811; 87880

== ENCOUNTER 2025-02-08 11:18 | Emergency (ER) | payer OTHER, SELFPAY ==
[2025-02-08 11:21] VITALS: BP 159/97
[2025-02-08 11:43] LABS: Hematocrit 40.3 % (37.0-47.0); Hemoglobin 13.8 g/dL (12.0-16.0); Mean Corp Hgb Conc. 34.2 g/dL (33.0-37.0); Mean Corpuscular Volume 87.6 fL (81.0-99.0); Nucleated Red Blood Cells % 0 %; Platelet Count 169 10^3/uL (130-400); Red Cell Dist. Width 12.3 % (11.5-14.5)
[2025-02-08 12:05] LABS: COVID-19 Antigen Negative (Negative)
[2025-02-08 12:15] LABS: HCG, Serum Qualitative Screen Negative
[2025-02-08 12:20] LABS: ALT (SGPT) 17 U/L (0-35); AST (SGOT) 21 U/L (14-36); Albumin 4.5 g/dl (3.5-5.0); Alkaline Phosphatase 60 U/L (38-126); Blood Urea Nitrogen 10 mg/dl (7-17); Calcium 9.2 mg/dl (8.4-10.2); Carbon Dioxide 25 mmol/L (22-30); Chloride 105 mmol/L (98-107); Glucose 75 mg/dl (70-99); Potassium 3.5 mmol/L (3.5-5.1); Sodium 137 mmol/L (135-145); Total Protein 7.3 g/dl (6.3-8.2); eGFR > 60.00
--- NOTE | 2025-02-08 13:37 | ED.GENMED ---
History of Present Illness
General
Chief Complaint: Cold/Flu/URI Symptoms
Time Seen by Provider: 02/08/25 13:22
History of Present Illness
History of Present Illness:
49-year-old otherwise healthy female presents to the emergency department for evaluation of cough and general malaise. She reports has been coughing for the past week and a half however over the past 2 to 3 days has night sweats and chills. No
shortness of breath. Cough is generally dry. Does report body aches as well.
Past History
Past History
ED Past Medical History: Other (Bronchitis, URI, intractable migraine)
ED Past Surgical History: None
Social History
Tobacco: Non-smoker
Alcohol: None
Drug: None
Review of Systems
Review of Systems
Allergies reviewed?: Yes
All Other Systems: ROS reviewed and negative except as documented in HPI and ROS
Phy Exam
Physical Exam
Physical Exam:
GEN: Well appearing, NAD, WDWN
HEENT: Oral mucosa moist, no scleral icterus
Cardiac: Regular rate
Lung: No respiratory distress, no tachypnea
MSK: No gross deformity or injuries
Skin: Good color, no pallor or jaundice, no rashes
Neuro: AO x3, moves all extremities freely
Psych: Calm, cooperative
Course
Orders/Labs/Results
Orders:
Orders
02/08/25 11:25
Electrocardiogram (*1) Urgent
Reason for Study: Chest Pain
EKG- Treatment ONCE
02/08/25 11:31
Test Result ONCE
02/08/25 11:33
COVID-19 Antigen Urgent
Source: Nasal Swab
Complete Blood Count/With Diff Urgent
Comprehensive Metabolic Panel Urgent
HCG, Serum Qualitative Screen Urgent
Influenza A+B Rapid Molecular Urgent
ANTHONY Source: Nasal Swab
Specimen Description:
02/08/25 13:37
CR Chest - 2 Views Urgent
Comment:
Reason For Exam: cough
Abnormal Lab Results
02/08/25
11:33
WBC 2.7 L 10^3/uL
(4.8-10.8)
Absolute Lymphs (auto) 0.7 L 10^3/uL
(1.2-3.4)
Monocytes % 11.0 H %
(1.7-9.3)
Creatinine 0.5 L mg/dL
(0.6-1.0)
02/08/25 11:33
02/08/25 11:33
Vital Signs
Initial and Last Documented VS:
Initial Vital Signs
Temp Pulse Resp BP Pulse Ox
98.4 F 78 18 159/97 98
02/08/25 11:21 02/08/25 11:21 02/08/25 11:21 02/08/25 11:21 02/08/25 11:21
Last Documented Vital Signs
Temp Pulse Resp BP Pulse Ox
99 F 78 14 112/67 99
02/08/25 16:06 02/08/25 16:06 02/08/25 16:06 02/08/25 16:06 02/08/25 16:06
MDM/Problems Addressed
MDM/Problems Addressed:
Chest x-ray is unremarkable. Labs indicative of a viral syndrome, influenza positive. No indication for antivirals particular given uncertain timeline of onset
*Pulse Oximetry
SaO2: 98
Oxygen Mode of Delivery: Room air
Patient hypoxic: no
*Critical Care Note
Total Time (30-74mins, 75-104mins- exclusive of procedures): Not Applicable
ED Attending Note
-
Portions of this chart may have been created with voice recognition software.� Occasional wrong word or��sound alike� substitutions may have occurred due to the inherent limitations of voice recognition software.
Discharge Plan
Departure
Patient Disposition: Home (Routine Discharge)
Date of Disposition: 02/08/25
Time of Disposition: 15:58
Patient with high blood pressure during this ER visit?: No
Discharge Problem:
Influenza
Instructions: Flu in adults (DC)
Prescriptions:
No Action
albuterol sulfate [ProAir HFA] 90 mcg/actuation HFA aerosol inhaler
1 puff inhalation Q4HPRN PRN (Reason: shortness of breath) Qty: 6.7 0RF
methylprednisolone [Medrol ([place])] 4 mg tablets,dose pack
See Rx Instructions .ROUTE .COMPLEX Qty: 21 0RF
Rx Instructions:
orally per package directions
doxycycline hyclate 100 mg capsule
100 mg PO BID Qty: 14 0RF
Referrals:
NONE,* [Family Provider, Internal Medicine]
Interventions
Interventions:
*General Assessment Last Done: 02/08/25 16:06
*Neglect/Abuse Screening Last Done: 02/08/25 16:06
[facility] Risk Assessment Tool Last Done: 02/08/25 16:06
*Risk Screen - Suicide (C-SSRS) Last Done: 02/08/25 11:21
*Nursing Disposition Last Done: 02/08/25 16:06
ED- Pulmonary Assessment Last Done: 02/08/25 14:23
Discharge Date and Time
Discharge Date/Time: 02/08/25 16:12
Print Language: [id number]
[2025-02-08 16:06] VITALS: BP 112/67
== END 2025-02-08 16:12 | disposition home or self-care (01) ==
LOC: EMR 11:18
PROVIDERS: Student in an Organized Health Care Education/Training Program; EMERGENCY PHYSICIAN Emergency Medicine
DX: J10.1 Influenza due to other identified influenza virus with other respiratory manifestations (principal)
CPT/HCPCS: 99284; 71046; 80053; 84703; 85025; 87502; 87811; 93005